=== PATIENT | female | born 1950 | race Caucasian/White ===

== ENCOUNTER 2018-09-09 17:49 | Emergency (ER) | payer MEDICARE, OTHER ==
[~2018-09-09] VITALS: Ht 160 cm; Wt 105.0 kg
[2018-09-09 18:09] VITALS: BP 112/69
[2018-09-09] MEDS ORDERED: CYCL-1 PO (18:59)
== END 2018-09-09 19:09 | disposition home or self-care (01) ==
LOC: ER 17:49
DX: M54.5 Low back pain (principal); G89.29 Other chronic pain; Z98.890 Other specified postprocedural states; Z79.899 Other long term (current) drug therapy; Z88.0 Allergy status to penicillin
CPT/HCPCS: 99283